=== PATIENT | male | born 1970 | race Caucasian/White ===

== ENCOUNTER 2022-12-19 21:58 | Emergency (ER) | payer SELFPAY ==
[2022-12-19 22:11] VITALS: BP 129/92; PULSE 85; RESP 16; TEMP 36.8; O2SAT 98; BMI 30.4
--- NOTE | 2022-12-19 22:25 | ED_ITS ---
HPI - Back Pain/Injury General Chief Complaint: Back Pain/Injury Stated Complaint: BACK PAIN Time Seen by Provider: 12/19/22 22:13 Source: patient Mode of arrival: walk-in History of Present Illness HPI Narrative: presents complaining of pain ongoing for past several months. Seen at [facility] one month ago for back pain. Describes pain radiating into his left leg. No leg weakness. No fever or loss of control or bowel or bladder. MD elicited complaint: Reports back pain Related Data Allergies Allergy/AdvReac Type Severity Reaction Status Date / Time tramadol [From Ultra] Allergy Intermediate Flushing Verified 12/19/22 22:20 Review of Systems ROS Status of ROS 10 or more systems reviewed and unremarkable except as noted in history and below [facility] Social History Smoking status: Current every day smoker Exam Constitutional Vital Signs, click to edit/add: Last Vital Signs Temp 98.2 F 12/19/22 22:11 Pulse 85 12/19/22 22:11 Resp 16 12/19/22 22:11 BP 129/92 H 12/19/22 22:11 Pulse Ox 98 12/19/22 22:11 O2 Del Method Room Air 12/19/22 22:11 Common normals: no apparent distress, average body habitus, oriented x3, no limitations, healthy appearing and alert Eye Common normals: EOMs intact bilaterally and conjunctivae normal Respiratory Common normals: normal respiratory effort, no retractions and no use of accessory muscles Cardio Common normals: regular rate, regular rhythm, S1 normal heart sound and S2 normal heart sound Back & Pelvis Other: left SI tenderness that reproduces symptoms Extremity Common normals: normal to inspection and full ROM Neuro Common normals: oriented x3, CN's II-XII intact bilaterally, moves all extremities, no focal motor deficits and no sensory deficits noted Psych Appearance: grossly normal Course Vital Signs Vital signs: Vital Signs Temperature 98.2 F 12/19/22 22:11 Pulse Rate 85 12/19/22 22:11 Respiratory Rate 16 12/19/22 22:11 Blood Pressure 129/92 H 12/19/22 22:11 Pulse Oximetry 98 12/19/22 22:11 Oxygen Delivery Method Room Air 12/19/22 22:11 Temperature 98.2 F 12/19/22 22:11 Pulse Rate 85 12/19/22 22:11 Respiratory Rate 16 12/19/22 22:11 Blood Pressure 129/92 H 12/19/22 22:11 Pulse Oximetry 98 12/19/22 22:11 Oxygen Delivery Method Room Air 12/19/22 22:11 MDM - Back Pain/Injury MDM Narrative Medical decision making narrative: presents complaining of lower left sided back pain radiating down his left leg. On and off for past several months. No weakness of his lower extremities or foot drop. Exam with findings of left SI tenderness that reproduces symptoms. Treated with IV solumedrol as he did not want other treatments offered and discharged home with a prescription of Prednisone Lab Data Labs: Lab Results 12/19/22 Range/Units 22:46 WBC 8.1 (4.0-11.0) 10^3/uL RBC 4.57 L (4.70-6.10) 10^6/uL Hgb 15.2 (14.0-18.0) g/dL Hct 43.8 (42.0-54.0) % MCV 95.8 H (80.0-94.0) fL MCH 33.3 (25.9-34.0) pg MCHC 34.7 (29.9-35.2) g/dL RDW 13.1 (11.0-15.0) % Plt Count 231 (150-450) 10^3/uL MPV 9.0 L (9.5-13.5) fL Neut % (Auto) 54.7 (43.0-75.0) % Lymph % (Auto) 33.7 (20.5-60.0) % Lares % (Auto) 6.9 (1.7-12.0) % Eos % (Auto) 3.6 (0.9-7.0) % Baso % (Auto) 0.9 (0.2-2.0) % Neut # (Auto) 4.5 (1.4-6.5) 10^3/uL Lymph # (Auto) 2.7 (1.2-3.8) 10^3/uL Lares # (Auto) 0.6 (0.3-0.8) 10^3/uL Eos # (Auto) 0.3 (0.0-0.7) 10^3/uL Baso # (Auto) 0.1 (0.0-0.1) 10^3/uL Abs Immat Gran (auto) 0.02 (0.00-0.03) 10^3/uL Imm/Tot Granulo (auto) 0.2 (0.0-0.5) % Sodium 140 (136-145) mmol/L Potassium 4.0 (3.5-5.1) mmol/L Chloride 105 (98-107) mmol/L Carbon Dioxide 26.5 (21.0-32.0) mmol/L Anion Gap 12.5 BUN 7.0 (7.0-18.0) mg/dL Creatinine 0.97 (0.70-1.30) mg/dL Est GFR ( Amer) >60 (>=60) Est GFR (Non-Af Amer) >60 (>=60) BUN/Creatinine Ratio 7.2 Glucose 97 (74-106) mg/dL Calcium 8.9 (8.5-10.1) mg/dL C-Reactive Protein 0.3 (<=1.0) mg/dL Discharge Plan Discharge Chief Complaint: Back Pain/Injury Clinical Impression: Sciatica Patient Disposition: Home, Self-Care Mode of Transportation: Private Vehicle Instructions: Sciatica (ED) Additional Instructions: follow up with your doctor later this week Stand Alone Forms: Portal Instructions Referrals: [facility] [Primary Care Provider] - 1 week
[2022-12-19] MEDS: METHYLPREDNISOLONE SOD SUCC PF 125 MG/2 ML VIAL IVP (22:47)
[2022-12-19 22:55] LABS: Basophils Absolute Auto 0.1 10^3/uL (0.0-0.1); Basophils Percent Auto 0.9 % (0.2-2.0); Eosinophils Absolute Auto 0.3 10^3/uL (0.0-0.7); Eosinophils Percent Auto 3.6 % (0.9-7.0); Hematocrit 43.8 % (42.0-54.0); Hemoglobin 15.2 g/dL (14.0-18.0); Immature Granulocytes Abs Auto 0.02 10^3/uL (0.00-0.03); Immature Granulocytes Pct Auto 0.2 % (0.0-0.5); Lymphocytes Absolute Auto 2.7 10^3/uL (1.2-3.8); Lymphocytes Percent Auto 33.7 % (20.5-60.0); Mean Corpuscular HGB Conc 34.7 g/dL (29.9-35.2); Mean Corpuscular Hemoglobin 33.3 pg (25.9-34.0); Mean Corpuscular Volume 95.8 fL (80.0-94.0); Monocytes Absolute Auto 0.6 10^3/uL (0.3-0.8); Monocytes Percent Auto 6.9 % (1.7-12.0); Neutrophils Absolute Auto 4.5 10^3/uL (1.4-6.5); Neutrophils Percent Auto 54.7 % (43.0-75.0); Platelet Count 231 10^3/uL (150-450); Red Blood Count 4.57 10^6/uL (4.70-6.10); Red Cell Distribution Width 13.1 % (11.0-15.0); White Blood Count 8.1 10^3/uL (4.0-11.0)
[2022-12-19 23:05] LABS: Anion Gap 12.5; BUN Creatinine Ratio 7.2; C Reactive Protein 0.3 mg/dL (<=1.0); Calcium 8.9 mg/dL (8.5-10.1); Carbon Dioxide 26.5 mmol/L (21.0-32.0); Chloride 105 mmol/L (98-107); Estimated GFR (African America >60 (>=60); Estimated GFR (Non-African Ame >60 (>=60); Glucose 97 mg/dL (74-106); Sodium 140 mmol/L (136-145)
== END 2022-12-19 23:56 | disposition home or self-care (01) ==
PROVIDERS: Emergency Provider Internal Medicine
DX: M54.42 Lumbago with sciatica, left side (principal); F17.210 Nicotine dependence, cigarettes, uncomplicated
CPT/HCPCS: 36415; 80048; 85025; 86140; 96374; 99284; J2930

== ENCOUNTER 2023-02-13 08:01 | Emergency (ER) | payer SELFPAY ==
[2023-02-13 08:05] VITALS: BP 131/87; PULSE 71; RESP 18; TEMP 36.7; O2SAT 99; BMI 26.1
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
== END 2023-02-13 09:33 | disposition home or self-care (01) ==
PROVIDERS: Emergency Provider Emergency Medicine Emergency Medical Services
DX: M54.42 Lumbago with sciatica, left side (principal); F17.210 Nicotine dependence, cigarettes, uncomplicated
CPT/HCPCS: 99283